=== PATIENT | female | born 1985 | race Hispanic/Latino ===

== ENCOUNTER → 2019-08-20 | Outpatient (CLI) | payer MEDICAID, OTHER, SELFPAY | END | disposition home or self-care (01) | LOC: DAH 10:00 → EDSTATUS 14:30 | PROVIDERS: ATTEND Surgery | DX: K80.50 Calculus of bile duct without cholangitis or cholecystitis without obstruction (principal); Z53.8 Procedure and treatment not carried out for other reasons; Z11.59 Encounter for screening for other viral diseases; Z79.899 Other long term (current) drug therapy | CPT/HCPCS: 36415; 80053; 85025; U0003 ==